=== PATIENT | male | born 1965 | race Caucasian/White ===

== ENCOUNTER 2016-07-30 12:34 | Emergency (ER) | payer SELFPAY ==
[2016-07-30 13:13] VITALS: TEMP 98
[2016-07-30] MEDS ORDERED: predniSONE 20 MG TAB PO ONE (14:53)
[2016-07-30] MEDS ORDERED: SODIUM CHLORIDE 0.9% 1000ML 1,000 ML IVS ONE (14:53)
[2016-07-30] MEDS ORDERED: COLCHICINE 0.6 MG TAB PO ONE (14:53)
--- NOTE | 2016-07-30 16:10 | ED.PDOC ---
History of Present Illness - General Chief Complaint: Upper Extremity Injury Stated Complaint: left elbow pain edema Time Seen by Provider: 07/30/16 14:53 Source: patient Exam Limitations: no limitations - History of Present Illness Initial Comments: The patient is a 50-year-old male presenting to the emergency room secondary to gout flare in his left elbow. He has had multiple flares at that site in the past and knows what it feels like. He states that this flare started yesterday. No recent injury. No fever. No other areas affected. He appears to be neurovascularly preserved distally. The elbow does show significant swelling and erythema and is tender to palpation consistent with a gout flare. Occurred: yesterday Pain - Upper Extremity: moderate: Elbow, left Method of Injury: unknown Improving Factors: immobilization Worsening Factors: movement Allergies/Adverse Reactions: Allergies NO KNOWN ALLERGY Allergy (Verified 05/28/16 12:50) Home Medications: Ambulatory Orders Lisinopril 40 mg PO DAILY 04/14/16 Acetaminophen W/ Codeine [Tylenol w/Codeine 300-30 mg] 1 tab PO TID PRN #10 tab 05/28/16 Prednisone 10 mg PO BID #10 ayleen 05/28/16 Colchicine 0.6 mg PO BID PRN #5 cap 07/30/16 predniSONE [Prednisone] 20 mg PO DAILY #5 tab 07/30/16 Review of Systems - Review of Systems Constitutional: States: no symptoms reported EENTM: States: no symptoms reported Respiratory: States: no symptoms reported Cardiology: States: no symptoms reported Gastrointestinal/Abdominal: States: no symptoms reported Genitourinary: States: no symptoms reported Musculoskeletal: States: see HPI Skin: States: see HPI Neurological: States: no symptoms reported Endocrine: States: no symptoms reported All other Systems: No Change from Baseline Past Medical History (General) - Patient Medical History Hx Seizures: No Hx Stroke: No Hx Dementia: No Hx Asthma: No Hx of COPD: No Hx Cardiac Disorders: No Hx Congestive Heart Failure: No Hx Pacemaker: No Hx Hypertension: Yes Hx Thyroid Disease: No Hx Diabetes: Yes Hx Gastroesophageal Reflux: No Hx Renal Disease: No Hx Cancer: Yes - kidney Hx of HIV: No Hx Hepatitis C: No Hx MRSA: No - Vaccination History Hx Tetanus, Diphtheria Vaccination: Yes Hx Influenza Vaccination: No Hx Pneumococcal Vaccination: No - Social History Hx Tobacco Use: Yes Hx Chewing Tobacco Use: No Hx Alcohol Use: No Hx Substance Use: No Hx Substance Use Treatment: No Hx Depression: No Hx Physical Abuse: No Hx Emotional Abuse: No Hx Suspected Abuse: No - Female History Patient is a Female of Child Bearing Age (10 -59 yrs old): No Patient : No Family Medical History - Family History Sister Family History: Unknown Living Status: Still Living Hx Family Hypertension: Yes Hx Family Stroke: Yes Hx Family;Other: COPD Physical Exam - Physical Exam General Appearance: Alert, Comfortable, No apparent distress Eyes, Ears, Nose, Throat Exam: PERRL/EOMI, normal ENT inspection - poor dentition Neck: non-tender, full range of motion Cardiovascular/Respiratory: regular rate, rhythm, normal peripheral pulses, normal breath sounds, no respiratory distress Abdominal Exam: non-tender - obese Back Exam: normal inspection, no CVA tenderness Shoulder Exam: normal inspection, non-tender, no evidence of injury, normal ROM Elbow/Forearm Exam: pain, soft tissue tenderness, swelling Wrist Exam: normal inspection, non-tender, no evidence of injury, normal ROM Hand Exam: normal inspection, non-tender, no evidence of injury, normal ROM Neuro/Tendon: normal sensation, normal motor functions, normal tendon functions Mental Status: alert, oriented x 3 Skin Exam: normal color - with the exception of the erythema surrounding the left elbow Comments: Vital Signs - 24 hr 07/30/16 13:08 Temperature 98.0 F Pulse Rate [ 74 right arm] Respiratory 18 Rate Blood Pressure 144/100 [Right Arm] O2 Sat by Pulse 97 Oximetry Progress - Progress Progress: 07/30/16 16:11 the patient is a 50-year-old male presenting with what appears to be a gout flare in the left elbow. This is a recurrent issue for this patient. He received a liter of IV fluids as well as a dose of oral prednisone and colchicine. He will be written for a short prescription for the colchicine and prednisone. He needs to keep well hydrated. He needs to keep the elbow warm. He needs to start doing range of motion exercises for the elbow. He needs to avoid alcohol and meat loads for now. He needs to follow up with his primary care doctor early next week. ER warnings were given for any acute worsening. Departure - Departure Clinical Impression: Gout attack Qualifiers: Gout site: elbow Gout etiology: unspecified cause Laterality: left Qualifier Code: (M10.9) Gout, unspecified Disposition: Discharge to Home or Self Care Condition: Fair Departure Forms: ED Discharge - Pt. Copy, Patient Portal Self Enrollment Instructions: DI for Gout Diet: other - Low protein low alcohol diet Activity: increase activity as tolerated Referrals: Lois Badillo NP [Primary Care Provider] - 1-2 Weeks Prescriptions: Colchicine 0.6 mg PO BID PRN #5 cap PRN Reason: Pain Score Of 7-10 predniSONE [Prednisone] 20 mg PO DAILY #5 tab Home Medications: Ambulatory Orders Lisinopril 40 mg PO DAILY 04/14/16 Acetaminophen W/ Codeine [Tylenol w/Codeine 300-30 mg] 1 tab PO TID PRN #10 tab 05/28/16 Prednisone 10 mg PO BID #10 ayleen 05/28/16 Colchicine 0.6 mg PO BID PRN #5 cap 07/30/16 predniSONE [Prednisone] 20 mg PO DAILY #5 tab 07/30/16 Additional Instructions: the patient is a 50-year-old male presenting with what appears to be a gout flare in the left elbow. This is a recurrent issue for this patient. He received a liter of IV fluids as well as a dose of oral prednisone and colchicine. He will be written for a short prescription for the colchicine and prednisone. He needs to keep well hydrated. He needs to keep the elbow warm. He needs to start doing range of motion exercises for the elbow. He needs to avoid alcohol and meat loads for now. He needs to follow up with his primary care doctor early next week. ER warnings were given for any acute worsening.
[2016-07-30 16:46] VITALS: BP 141/88; O2SAT 98
== END 2016-07-30 16:46 | disposition home or self-care (01) ==
LOC: ER 12:34
DX: M10.9 Gout, unspecified (principal); I10 Essential (primary) hypertension; E11.9 Type 2 diabetes mellitus without complications; Z87.891 Personal history of nicotine dependence; Z85.528 Personal history of other malignant neoplasm of kidney; Z79.899 Other long term (current) drug therapy
CPT/HCPCS: J7030; J7512

== ENCOUNTER 2016-11-15 14:07 | Emergency (ER) | payer SELFPAY ==
[2016-11-15 14:20] VITALS: TEMP 98.2
[2016-11-15] MEDS ORDERED: SODIUM CHLORIDE 0.9% 1000ML 1,000 ML IVS ONE (14:30)
[2016-11-15] MEDS ORDERED: diazePAM 2 MG TAB PO ONE (14:30)
[2016-11-15] MEDS ORDERED: HYDROcodone 5MG/APAP 325MG 1 EA TAB PO ONE (14:30)
[2016-11-15] MEDS ORDERED: ASPIRIN TABLET 325 MG TAB PO ONE (15:52)
[2016-11-15] MEDS ORDERED: LIDOCAINE VIS-MYLANTA 30 ML UD PO ONE (15:52)
--- NOTE | 2016-11-15 16:27 | ED.PDOC ---
History of Present Illness - General Chief Complaint: Cardiovascular Problem Stated Complaint: hypertension, headache Time Seen by Provider: 11/15/16 14:13 Source: patient Exam Limitations: no limitations - History of Present Illness Initial Comments: The patient is a 50-year-old male presented to emergency room secondary to headache that has been present for the last 6 days. The headache has been getting a little bit worse and when he checked his blood pressure today it was significantly elevated. The patient has been taking Alevefor the last 3 or 4 days for the headache. Just prior to the headache starting the patient had been at a motorcycle rally for the last week. He had been out in the heat. He likely did get dehydrated. The patient has had no medication changes. No syncope or near syncope. No focal neurological changes. Headache is circumferential. Timing/Duration: 1 week Severity: moderate Improving Factors: nothing Worsening Factors: nothing Associated Symptoms: headaches Allergies/Adverse Reactions: Allergies NO KNOWN ALLERGY Allergy (Verified 05/28/16 12:50) Home Medications: Ambulatory Orders Lisinopril 40 mg PO DAILY 04/14/16 Acetaminophen W/ Codeine [Tylenol w/Codeine 300-30 mg] 1 tab PO TID PRN #10 tab 05/28/16 Prednisone 10 mg PO BID #10 ayleen 05/28/16 Colchicine 0.6 mg PO BID PRN #5 cap 07/30/16 predniSONE [Prednisone] 20 mg PO DAILY #5 tab 07/30/16 Review of Systems - Review of Systems Constitutional: States: malaise EENTM: States: no symptoms reported Respiratory: States: no symptoms reported Cardiology: States: no symptoms reported Gastrointestinal/Abdominal: States: no symptoms reported Genitourinary: States: no symptoms reported Musculoskeletal: States: no symptoms reported Skin: States: no symptoms reported Neurological: States: headache Endocrine: States: no symptoms reported All other Systems: No Change from Baseline Past Medical History (General) - Patient Medical History Hx Seizures: No Hx Stroke: No Hx Dementia: No Hx Asthma: No Hx of COPD: No Hx Cardiac Disorders: No Hx Congestive Heart Failure: No Hx Pacemaker: No Hx Hypertension: Yes Hx Thyroid Disease: No Hx Diabetes: - pre Hx Gastroesophageal Reflux: No Hx Renal Disease: No Hx Cancer: Yes - kidney Hx of HIV: No Hx Hepatitis C: No Hx MRSA: No Surgical History: other - Vaccination History Hx Tetanus, Diphtheria Vaccination: Yes Hx Influenza Vaccination: No Hx Pneumococcal Vaccination: No - Social History Hx Tobacco Use: Yes Hx Chewing Tobacco Use: No Hx Alcohol Use: No Hx Substance Use: No Hx Substance Use Treatment: No Hx Depression: No Hx Physical Abuse: No Hx Emotional Abuse: No Hx Suspected Abuse: No - Female History Patient : No Family Medical History - Family History Sister Family History: Unknown Living Status: Still Living Hx Family Hypertension: Yes Hx Family Stroke: Yes Hx Family;Other: COPD Physical Exam - Physical Exam General Appearance: Alert, Comfortable, No apparent distress Eye Exam: bilateral normal Ears, Nose, Throat: hearing grossly normal, normal ENT inspection, normal pharynx Neck: non-tender, full range of motion, supple - no meningeal signs. Respiratory: chest non-tender, lungs clear, normal breath sounds, no respiratory distress, no accessory muscle use Cardiovascular/Chest: normal peripheral pulses, regular rate, rhythm, no edema Peripheral Pulses: radial,right: 2+, radial,left: 2+ Gastrointestinal/Abdominal: non tender, soft Rectal Exam: deferred Back Exam: normal inspection, no CVA tenderness, no vertebral tenderness Extremity: normal range of motion, non-tender, normal inspection, no pedal edema , normal capillary refill Neurologic: registered midwife II-XII nml as tested, alert, normal mood/affect, oriented x 3 Skin Exam: normal color Comments: Vital Signs - 24 hr 11/15/16 11/15/16 11/15/16 14:08 14:46 15:15 Temperature 98.2 F Pulse Rate [ 61 58 L 52 L apical] Respiratory 20 20 16 Rate Blood Pressure 162/119 187/109 168/101 [left brachial] O2 Sat by Pulse 96 97 95 Oximetry 11/15/16 15:44 Temperature Pulse Rate [ 54 L apical] Respiratory 16 Rate Blood Pressure 165/95 [left brachial] O2 Sat by Pulse 96 Oximetry Progress - Progress Progress: 11/15/16 16:27 he patient is a 50-year-old male presenting due to a headache that has been present for the last 5 or 6 days. Clinically this is most consistent with a dehydration headache likely related to the prior week's activities. The patient received a liter of IV fluids as well as some pain medications for the headache. His headache is significantly improved. No neurological deficits. He does need to discontinue the naproxen. He can take Tylenol for the headache. He needs to relax for the next day or 2. He needs to follow his blood pressures out over the coming week. if they are remaining elevated then he may need a change in his blood pressure medications. If the headache comes back significantly or worsens from where it is, then he may need further imaging. ER warnings were given. he should follow-up with his primary care doctor next week. He does have a very small amount of hematuria but does need follow-up as well.the patient has agreed to the plan above. - Results/Orders Results/Orders: Laboratory Tests 11/15/16 11/15/16 11/15/16 14:45 14:45 14:49 WBC 7.4 RBC 5.23 Hgb 15.4 Hct 45.3 MCV 86.6 MCH 29.4 MCHC 33.9 RDW 14.7 H Plt Count 162 MPV 8.8 Absolute Neuts (auto) 4.10 Absolute Lymphs (auto) 2.10 Absolute Monos (auto) 0.60 Absolute Eos (auto) 0.50 H Absolute Basos (auto) 0.10 Neutrophils % 55.7 Lymphocytes % 29.1 Monocytes % 7.8 Eosinophils % 6.4 H Basophils % 1.0 Sodium 142 Potassium 3.6 Chloride 106 Carbon Dioxide 28 Anion Gap 11.6 L BUN 15 Creatinine 1.09 BUN/Creatinine Ratio 13.8 Random Glucose 120 H Serum Osmolality 285.1 Calcium 9.3 Magnesium 1.8 Total Bilirubin 0.6 AST 26 ALT 30 Alkaline Phosphatase 56 Serum Total Protein 7.4 Albumin 4.0 Globulin 3.4 Albumin/Globulin Ratio 1.2 Urine Color Yellow Urine Appearance Clear Urine pH 5.5 Ur Specific [place] 1.025 Urine Protein 30 Urine Glucose (UA) Negative Urine Ketones Negative Urine Blood Moderate H Urine Nitrite Negative Urine Bilirubin Negative Urine Urobilinogen 0.2 Ur Leukocyte Esterase Negative Urine RBC 5-10 H Urine WBC 0 Ur Epithelial Cells 1-3 Urine Bacteria 0 Departure - Departure Clinical Impression: Dehydration Headache Qualifiers: Headache type: unspecified Headache chronicity pattern: acute headache Intractability: not intractable Qualified Code(s): R51 - Headache Disposition: Discharge to Home or Self Care Condition: Fair Departure Forms: ED Discharge - Pt. Copy, Patient Portal Self Enrollment Instructions: DI for Dehydration -- Adult, DI for Headache Diet: regular diet Activity: increase activity as tolerated Referrals: Lois Badillo NP [Primary Care Provider] - 1-2 Weeks Home Medications: Ambulatory Orders Lisinopril 40 mg PO DAILY 04/14/16 Acetaminophen W/ Codeine [Tylenol w/Codeine 300-30 mg] 1 tab PO TID PRN #10 tab 05/28/16 Prednisone 10 mg PO BID #10 ayleen 05/28/16 Colchicine 0.6 mg PO BID PRN #5 cap 07/30/16 predniSONE [Prednisone] 20 mg PO DAILY #5 tab 07/30/16 Additional Instructions: he patient is a 50-year-old male presenting due to a headache that has been present for the last 5 or 6 days. Clinically this is most consistent with a dehydration headache likely related to the prior week's activities. The patient received a liter of IV fluids as well as some pain medications for the headache. His headache is significantly improved. No neurological deficits. He does need to discontinue the naproxen. He can take Tylenol for the headache. He needs to relax for the next day or 2. He needs to follow his blood pressures out over the coming week. if they are remaining elevated then he may need a change in his blood pressure medications. If the headache comes back significantly or worsens from where it is, then he may need further imaging. ER warnings were given. he should follow-up with his primary care doctor next week. He does have a very small amount of hematuria but does need follow-up as well.the patient has agreed to the plan above.
[2016-11-15 16:47] VITALS: BP 176/104; O2SAT 95
== END 2016-11-15 16:50 | disposition home or self-care (01) ==
LOC: ER 14:07
DX: E86.0 Dehydration (principal); R51 Headache; I10 Essential (primary) hypertension; E11.9 Type 2 diabetes mellitus without complications; Z85.528 Personal history of other malignant neoplasm of kidney; Z79.899 Other long term (current) drug therapy; Z87.891 Personal history of nicotine dependence
CPT/HCPCS: 36415; 80053; 81001; 83735; 85025; J7030

== ENCOUNTER 2018-11-08 08:48 | Emergency (ER) | payer SELFPAY ==
[2018-11-08 09:10] VITALS: TEMP 96.6
--- NOTE | 2018-11-08 09:24 | ED.PDOC ---
History of Present Illness - General Chief Complaint: General Stated Complaint: LEFT KNEE PAIN Time Seen by Provider: 11/08/18 09:21 Source: patient Exam Limitations: no limitations - History of Present Illness Initial Comments: Patient presents with an acute on chronic gout attack of the left knee. He has had it for several days. It is throbbing, non-radiating, worse with movement, better with rest, multiple previous episodes. He usually is treated with colchicine and a short course of steroids. No other complaints. The patient has had a right total nephrectomy due to renal CA but he has a fully functioning left kidney. Timing/Duration: other - several days Severity: moderate Improving Factors: rest Worsening Factors: movement Associated Symptoms: denies symptoms Allergies/Adverse Reactions: Allergies NO KNOWN ALLERGY Allergy (Verified 05/28/16 12:50) Home Medications: Ambulatory Orders Lisinopril 40 mg PO DAILY 04/14/16 Colchicine 0.6 mg PO BID #3 cap 11/08/18 predniSONE 20 mg PO DAILY #5 tab 11/08/18 Review of Systems - Review of Systems Constitutional: States: no symptoms reported EENTM: States: no symptoms reported Respiratory: States: no symptoms reported Cardiology: States: no symptoms reported Gastrointestinal/Abdominal: States: no symptoms reported Genitourinary: States: no symptoms reported Musculoskeletal: States: see HPI Skin: States: no symptoms reported Neurological: States: no symptoms reported Endocrine: States: no symptoms reported Hematologic/Lymphatic: States: no symptoms reported Past Medical History (General) - Patient Medical History Hx Seizures: No Hx Stroke: No Hx Dementia: No Hx Asthma: No Hx of COPD: No Hx Cardiac Disorders: No Hx Congestive Heart Failure: No Hx Pacemaker: No Hx Hypertension: Yes Hx Thyroid Disease: No Hx Diabetes: - pre Hx Gastroesophageal Reflux: No Hx Renal Disease: No Hx Cancer: Yes - kidney Hx of HIV: No Hx Hepatitis C: No Hx MRSA: No Surgical History: other - Vaccination History Hx Tetanus, Diphtheria Vaccination: Yes Hx Influenza Vaccination: No Hx Pneumococcal Vaccination: No - Social History Hx Tobacco Use: Yes Hx Chewing Tobacco Use: No Hx Alcohol Use: No Hx Substance Use: No Hx Substance Use Treatment: No Hx Depression: No Hx Physical Abuse: No Hx Emotional Abuse: No Hx Suspected Abuse: No - Female History Patient : No Family Medical History - Family History Sister Family History: Unknown Living Status: Still Living Hx Family Hypertension: Yes Hx Family Stroke: Yes Hx Family;Other: COPD Physical Exam - Physical Exam General Appearance: Alert Respiratory: lungs clear, normal breath sounds Cardiovascular/Chest: normal peripheral pulses, regular rate, rhythm, no edema Gastrointestinal/Abdominal: normal bowel sounds, non tender, soft Extremity: other - left knee is mildly swollen and TTP. Full PROM and AROM but it is painful. Full sensation throughout the entire left leg. No pedal edema. Departure - Departure Clinical Impression: Gout attack Disposition: Discharge to Home or Self Care Condition: Good Departure Forms: ED Discharge - Pt. Copy, Patient Portal Self Enrollment Instructions: Lifestyle Changes to Manage Gout, Gout (DC), Low Purine Diet Diet: other - as per your regular physician for prevention of gout attacks. Activity: increase activity as tolerated Prescriptions: Colchicine 0.6 mg PO BID #3 cap predniSONE 20 mg PO DAILY #5 tab Home Medications: Ambulatory Orders Lisinopril 40 mg PO DAILY 04/14/16 Colchicine 0.6 mg PO BID #3 cap 11/08/18 predniSONE 20 mg PO DAILY #5 tab 11/08/18 Additional Instructions: Take prescriptions as directed. Return to the E.R. if symptoms fail to resolve in 3-4 days.
[2018-11-08 09:42] VITALS: BP 110/70; O2SAT 96
== END 2018-11-08 09:42 | disposition home or self-care (01) ==
LOC: ER 08:48
DX: M10.9 Gout, unspecified (principal); I10 Essential (primary) hypertension; R73.03 Prediabetes; Z85.528 Personal history of other malignant neoplasm of kidney; Z87.891 Personal history of nicotine dependence